=== PATIENT | female | born 1990 | race Caucasian/White ===

== ENCOUNTER → 2017-02-23 | Outpatient (CLI) | payer OTHER ==
--- NOTE | 2017-02-23 10:49 | REP ---
OBSTETRIC SONOGRAPHY: HISTORY: Supervision of for anatomy. FINDINGS: Scanning through the gravid uterus demonstrates a viable single intrauterine gestation in a cephalic lie. motion is observed and heart rate is recorded at 139 beats per minute. An anterior grade 0 placenta is seen without evidence of previa or abruption. Amniotic fluid is subjectively normal. Closed cervical length is 5.4 cm. No extrauterine abnormality is observed. No anomaly is seen. The following anatomic structures are identified and felt to be sonographically unremarkable: cranium, choroid plexus, cavum, cerebellum and posterior fossa, face and profile, lungs, four-chamber heart with left and right ventricular outflow tract views, diaphragm, left-sided stomach, abdominal wall cord insertion, three-vessel umbilical cord, kidneys and bladder, spine, upper and lower extremities. Biometry Chart: BPD 4.5 cm = 19 weeks 4 days HC 17.1 cm = 19 weeks 5 days AC 15.9 cm = 21 weeks 0 days FL 3.2 cm = 20 weeks 0 days HL 3.0 cm = 19 weeks 6 days CD 2.0 cm = 19 weeks 2 days HC/AC ratio normal 1.08 . Cephalic index normal 0.72. Estimated weight 353 grams, 0 pounds 12 ounces, 90th percentile for 19 weeks 2 days. IMPRESSION: Viable single intrauterine gestation 19-week 6 days by today's composite sonographic criteria. JORDYN by today's sonography July 14, 2017. No anomalies seen. Signed by Ludwin Aponte MD 02/23/2017 01:11 P
== END ==
LOC: M RAD 08:24
PROVIDERS: ATTEND Obstetrics & Gynecology
DX: Z36 Encounter for antenatal screening of mother (principal); Z3A.19 19 weeks gestation of pregnancy

== ENCOUNTER → 2017-04-24 | Outpatient (CLI) | payer OTHER | LOC: M LAB 08:17 | PROVIDERS: ATTEND Specialist | DX: Z34.82 Encounter for supervision of other normal pregnancy, second trimester (principal) ==

== ENCOUNTER → 2017-04-25 | Outpatient (CLI) | payer OTHER | LOC: M LAB REF 13:54 | PROVIDERS: ATTEND Obstetrics & Gynecology | DX: Z34.82 Encounter for supervision of other normal pregnancy, second trimester (principal) ==

== ENCOUNTER 2017-07-11 05:36 | Inpatient (IN) | payer OTHER ==
[2017-07-11] MEDS: LR 800 ML IV (06:30)
[2017-07-11 06:58] LABS: HEMATOCRIT 35.2 % (36.0-47.0); HEMOGLOBIN 11.8 g/dl (12.0-16.0); MEAN CORPUSCULAR HEMOGLOBIN 31.1 pg (27.0-33.0); MEAN CORPUSCULAR HGB CONC 33.5 g/dl (32.0-36.5); MEAN CORPUSCULAR VOLUME 92.6 fl (80.0-96.0); PLATELET COUNT, AUTOMATED 114 10^3/uL (150-450); RED CELL DISTRIBUTION WIDTH 13.2 % (11.5-14.5); WHITE BLOOD COUNT 8.9 10^3/uL (4.0-10.0)
[2017-07-11] MEDS: BICITRA 30ML SOLN UDC PO (07:27)
[2017-07-11] MEDS: LR 1,000 ML IV ×3 (07:28→18:15)
[2017-07-11] MEDS ORDERED: MORPHINE PRES-FREE INJ 10 MG/10 ML VIAL (J2274) As Ordered (07:35)
[2017-07-11] MEDS ORDERED: ONDANSETRON 4MG/2ML VIAL (J2405) IV ×3 (08:00→09:45)
[2017-07-11] MEDS ORDERED: NALBUPHINE HCL 10 MG/ML AMP (J2300) IV ×2 (08:00→09:45)
[2017-07-11] MEDS ORDERED: NALOXONE INJ 0.4 MG/1 ML VIAL (J2310) IV ×2 (08:00)
[2017-07-11] MEDS ORDERED: PHENYLephrine HCL 500 MCG/5 ML (100MCG/ML) SYRINGE (J2370) As Ordered (08:21)
[2017-07-11] MEDS ORDERED: OXYTOCIN INJ 10 UNITS/ML VIAL (J2590) As Ordered (08:21)
[2017-07-11] MEDS ORDERED: ONDANSETRON 4MG/2ML VIAL (J2405) As Ordered (08:22)
[2017-07-11] MEDS ORDERED: ePHEDrine INJ 50 MG/ML VIAL As Ordered (08:22)
[2017-07-11] MEDS: OXYTOCIN DRIP 30 UNITS in APPROPRIATE DILUENT 1 EA IV (09:15)
[2017-07-11] MEDS ORDERED: PERCOCET 5MG/325MG TAB PO (09:15)
[2017-07-11] MEDS ORDERED: MEASLES,MUMPS,RUBELLA VACCINE INJ (MMR-II) (90707) SC (09:15)
[2017-07-11] MEDS ORDERED: KETOROLAC 30 MG/ML VIAL (J1885) IV (09:15)
[2017-07-11] MEDS ORDERED: fentaNYL 100 MCG/2 ML INJECTION (J3010) IV (09:45)
[2017-07-11] MEDS: PRENATAL VITAMINS CHEWABLE TABLET PO (11:50)
[2017-07-11] MEDS: KETOROLAC 30 MG/ML VIAL (J1885) IV ×2 (11:54→18:15)
[2017-07-11] MEDS: METOCLOPRAMIDE INJ 10MG/2ML VIAL (J2765) IV (11:54)
[2017-07-11 13:37] LABS: HEMATOCRIT 30.4 % (36.0-47.0); HEMOGLOBIN 10.2 g/dl (12.0-16.0); MEAN CORPUSCULAR HEMOGLOBIN 31.8 pg (27.0-33.0); MEAN CORPUSCULAR HGB CONC 33.6 g/dl (32.0-36.5); MEAN CORPUSCULAR VOLUME 94.7 fl (80.0-96.0); PLATELET COUNT, AUTOMATED 143 10^3/uL (150-450); RED BLOOD COUNT 3.21 10^6/uL (4.00-5.40); RED CELL DISTRIBUTION WIDTH 13.3 % (11.5-14.5)
[2017-07-11] MEDS: DOCUSATE SODIUM 100 MG CAP PO (22:04)
[2017-07-12] MEDS: KETOROLAC 30 MG/ML VIAL (J1885) IV ×2 (00:23→05:32)
[2017-07-12] MEDS: LR 1,000 ML IV ×4 (01:08→19:30)
[2017-07-12] MEDS: LR 500 ML IV (01:30)
[2017-07-12 06:38] LABS: HEMATOCRIT 24.6 % (36.0-47.0); MEAN CORPUSCULAR HGB CONC 32.9 g/dl (32.0-36.5); MEAN CORPUSCULAR VOLUME 94.3 fl (80.0-96.0); PLATELET COUNT, AUTOMATED 110 10^3/uL (150-450); RED BLOOD COUNT 2.61 10^6/uL (4.00-5.40); RED CELL DISTRIBUTION WIDTH 13.7 % (11.5-14.5)
[2017-07-12 06:48] LABS: HEMOGLOBIN 8.1 g/dl (12.0-16.0)
[2017-07-12] MEDS ORDERED: IBUPROFEN 800 MG TAB PO (11:15)
[2017-07-12] MEDS: PRENATAL VITAMINS CHEWABLE TABLET PO (11:28)
[2017-07-12] MEDS: PERCOCET 5MG/325MG TAB PO (12:50)
[2017-07-12] MEDS: IBUPROFEN 800 MG TAB PO ×2 (17:31→22:51)
[2017-07-12 18:26] LABS: FETAL SCREEN PROF. 1 1
[2017-07-12] MEDS: RHOGAM 300 MCG (1500 IU) INJ (J2790) IM (18:42)
[2017-07-13] MEDS: LR 1,000 ML IV (01:08)
[2017-07-13] MEDS: IBUPROFEN 800 MG TAB PO ×2 (06:06→13:52)
[2017-07-13] MEDS: PRENATAL VITAMINS CHEWABLE TABLET PO (09:20)
== END 2017-07-13 14:20 | disposition home or self-care (01) | DRG 766 ==
LOC: M LDI 05:36 → M OBS 10:46
PROVIDERS: Specialist
PROC: 10D00Z1 Extraction of Products of Conception, Low, Open Approach (ICD-10-PCS; principal; 2017-07-11 07:30)
DX: O34.211 Maternal care for low transverse scar from previous cesarean delivery (principal); Z3A.39 39 weeks gestation of pregnancy; Z37.0 Single live birth

== ENCOUNTER → 2017-07-26 | Outpatient (CLI) | payer OTHER | LOC: M RAD 10:03 | DX: Z48.816 Encounter for surgical aftercare following surgery on the genitourinary system (principal); M79.81 Nontraumatic hematoma of soft tissue | CPT/HCPCS: 76857 ==

== ENCOUNTER → 2017-08-09 | Outpatient (REF) | payer OTHER | LOC: M LAB REF 19:50 | DX: J02.9 Acute pharyngitis, unspecified (principal) | CPT/HCPCS: 87070 ==

== ENCOUNTER 2017-11-15 10:33 | Emergency (ER) | payer OTHER ==
[2017-11-15 13:05] LABS: BASO % 0.3 % (0.0-1.0); EOS % 0.6 % (0.0-3.0); HEMATOCRIT 38.4 % (36.0-47.0); HEMOGLOBIN 12.7 g/dl (12.0-15.5); IMMATURE GRANULOCYTE % 0.3 % (0-3.0); LYMPH # 1.1 10^3/uL (1.5-6.5); LYMPH % 16.7 % (24.0-44.0); MEAN CORPUSCULAR HEMOGLOBIN 28.5 pg (27.0-33.0); MEAN CORPUSCULAR HGB CONC 33.1 g/dl (32.0-36.5); MEAN CORPUSCULAR VOLUME 86.3 fl (80.0-96.0); MONO # 0.5 10^3/uL (0.0-0.8); MONO % 7.7 % (0.0-5.0); NEUTROPHILS # 4.9 10^3/uL (1.8-7.7); NEUTROPHILS % 74.4 % (36.0-66.0); PLATELET COUNT, AUTOMATED 286 10^3/uL (150-450); RED BLOOD COUNT 4.45 10^6/uL (4.00-5.40); RED CELL DISTRIBUTION WIDTH 12.1 % (11.5-14.5); WHITE BLOOD COUNT 6.5 10^3/uL (4.0-10.0)
[2017-11-15 13:14] LABS: KETONE, URINE AUTO RFX NEGATIVE (NEGATIVE); MUCUS, URINE RFX SMALL (NEGATIVE); NITRITE, URINE AUTO RFX NEGATIVE (NEGATIVE); RBC, URINE AUTO RFX 3 /HPF (0-3); SPECIFIC GRAVITY UR AUTO RFX 1.006 (1.002-1.035); SQUAM EPITHELIAL CELL UR AURFX 1 /HPF (0-6); WBC, URINE AUTO RFX 3 /HPF (0-3)
[2017-11-15 13:15] LABS: LEUKOCYTE ESTERASE UR AUTO RFX TRACE (NEGATIVE)
[2017-11-15 13:27] LABS: ANION GAP 3 MEQ/L (8-16); BLOOD UREA NITROGEN 8 MG/DL (7-18); CALCIUM LEVEL 8.9 MG/DL (8.5-10.1); CARBON DIOXIDE LEVEL 30 MEQ/L (21-32); CHLORIDE LEVEL 108 MEQ/L (98-107); CREATININE FOR GFR 0.71 MG/DL (0.55-1.30); GLOMERULAR FILTRATION RATE > 60.0 (>60); GLUCOSE, FASTING 128 MG/DL (70-100); LIPASE 105 U/L (73-393); POTASSIUM SERUM 4.2 MEQ/L (3.5-5.1); SODIUM LEVEL 141 MEQ/L (136-145)
== END 2017-11-15 14:30 | disposition home or self-care (01) ==
LOC: M ED 10:33
DX: R10.31 Right lower quadrant pain (principal); R11.2 Nausea with vomiting, unspecified; F33.9 Major depressive disorder, recurrent, unspecified
CPT/HCPCS: 76856